=== PATIENT | female | born 1965 | race African-American/Black ===

== ENCOUNTER 2017-08-10 10:19 | Emergency (ER) | payer BC ==
[2017-08-10] MEDS ORDERED: AZITHROMYCIN 250 MG TABLET. PO (11:45)
[2017-08-10] MEDS ORDERED: IBUPROFEN 100 MG/5 ML ORAL.SUSP. PO (11:45)
== END 2017-08-10 12:09 | disposition home or self-care (01) ==
LOC: ER 10:19
DX: J01.00 Acute maxillary sinusitis, unspecified (principal); Z88.0 Allergy status to penicillin
CPT/HCPCS: 99283